=== PATIENT | female | born 1975 | race Caucasian/White ===

== ENCOUNTER 2016-11-08 17:08 | Emergency (ER) | payer OTHER ==
[2016-11-08 17:13] VITALS: BP 103/68; BMI 15.3
--- NOTE | 2016-11-08 17:41 | DR.GENAD ---
HPI - PCP Primary Care Physician: clyde - Complaint/Symptoms Chief Complaint Doctors Comments: Agree with statement. She denies fever, vomiting or diarrhea. Admits to flank pain Chief Complaint:: patient stated her right lower abd has been hurting since yesterday. she stated she thinks it may be a cyst or kidney stone - Source History Provided: Patient - Mode of Arrival Mode of Arrival: Ambulatory - Timing Onset of Chief Complaint: 11/07/16 PMH - PMH Past Medical History: No Past Surgical History: Yes Surgical History: , Cholecystectomy, Tonsillectomy - Family History History of Family Medical Conditions: No - Social History Does patient currently use any type of tobacco product: Yes Have you used tobacco products in the last 12 months: Yes Type of Tobacco Use: Cigarettes How many years tobacco product used: 15 Does any household member use tobacco: No Alcohol Use: None Do you use any recreational Drugs:: No Lives With: Family Lives Where: Home - infectious screening In the last 2 months have you had wt loss of >10#?: NO Have you had fever, night sweats or hemotysis?: No Have you traveled outside the country in the last 6 months?: No Isolation: Standard ROS - Review of Systems Eyes: No Symptoms Reported ENTM: No Symptoms Reported Respiratoy: No Symptoms Reported Cardiovascular: No Symptoms Reported Gastrointestinal/Abdominal: Abdominal Pain Genitourinary: No Symptoms Reported Neurological: No Symptoms Reported Musculoskeletal: No Symptoms Reported Integumentary: No Symptoms Reported Hematologic/Lymphatic: No Symptoms Reported Endocrine: No Symptoms Reported Psychiatric: No Symptoms Reported All Other Systems: Reviewed and Negative PE - Vital Signs Vitals: Temperature 98.7 F Pulse Rate 98 Respiratory Rate 16 Blood Pressure 103/68 O2 Sat by Pulse Oximetry 100 - General Limitations: No Limitations General Appearance: Alert, In No Apparent Distress - Head Head Exam: Normal Inspection, Atraumatic - Eyes Eye exam: Normal Appearance, PERRL, EOMI - ENT ENT Exam: Normal Exam External Ear Exam: Normal External Inspection TM/Canal Exam: Bilateral Normal Nose Exam: Normal Nose Exam Mouth Exam: Normal Inspection - Neck Neck Exam: Normal Inspection, Full ROM - Chest Chest Inspection: Normal Inspection - Respiratory Respiratory Exam: Normal Lung Sounds Bilat Respiratory Exam: Bilateral Clear to Auscultation - Cardiovascular Cardiovascular Exam: Regular Rate - Abdominal Exam Abdominal Exam: Normal Inspection, Soft, Tenderness (suprapubic, negative Rodriguez 's sign) Abdominal Tenderness: Suprapubic - Extremities Extremities Exam: Normal Inspection, Full ROM - Back Back Exam: Normal Inspection, Full ROM - Neurologic Neurological Exam: Alert, Oriented X3, CN II-XII Intact - Psychiatric Psychiatric Exam: Normal Affect - Skin Skin Exam: Warm, Dry, Intact ROR - Labs Reviewed Laboratory Results Reviewed?: Yes (Urine: Leukocytes +, 3+bld) Result Diagrams: 11/08/16 17:45 11/08/16 17:45 Laboratory: WBC 7.7 X10^3/uL (3.6-10.0) 11/08/16 17:45 RBC 4.25 X10^6/uL (3.5-5.4) 11/08/16 17:45 Hgb 12.7 g/dL (12.0-16.0) 11/08/16 17:45 Hct 37.9 % (36.0-47.0) 11/08/16 17:45 MCV 89.1 fL (80.0-100.0) 11/08/16 17:45 MCH 29.8 pg (27.0-34.0) 11/08/16 17:45 MCHC 33.5 g/dL (33.0-35.0) 11/08/16 17:45 RDW 14.0 % (11.6-16.5) 11/08/16 17:45 Plt Count 163 X10^3/uL (150.0-450.0) 11/08/16 17:45 MPV 11.1 fL (7.4-11.0) H 11/08/16 17:45 Neut % 64.6 % (42.0-75.0) 11/08/16 17:45 Lymph % 26.2 % (21.0-51.0) 11/08/16 17:45 Titus % 6.6 % (0.0-13.0) 11/08/16 17:45 Eos % 1.7 % (0.9-2.9) 11/08/16 17:45 Baso % 0.9 % (0.2-1.0) 11/08/16 17:45 Neut # 5.0 x10^3/uL (2.2-4.8) H 11/08/16 17:45 Lymph # 2.0 X10^3/uL (1.3-2.9) 11/08/16 17:45 Titus # 0.5 x10^3/uL (0.3-0.8) 11/08/16 17:45 Eos # 0.1 x10^3/uL (0.0-0.2) 11/08/16 17:45 Baso # 0.1 X10^3/uL (0.0-0.1) 11/08/16 17:45 Absolute Nucleated RBC 0.0 /100WBC 11/08/16 17:45 Sodium 142 mmol/L (136-145) 11/08/16 17:45 Corrected Sodium 143 mmol/L (136-145) 11/08/16 17:45 Potassium 4.3 mmol/L (3.5-5.1) 11/08/16 17:45 Chloride 105 mmol/L (98-107) 11/08/16 17:45 Carbon Dioxide 28.6 mmol/L (21-32) 11/08/16 17:45 BUN 14 mg/dL (7-18) 11/08/16 17:45 Creatinine 0.92 mg/dL (0.55-1.02) 11/08/16 17:45 Est GFR (MDRD) Af Amer > 60 (>60) 11/08/16 17:45 Est GFR (MDRD) Non-Af > 60 (>60) 11/08/16 17:45 Glucose 127 mg/dL (65-99) H 11/08/16 17:45 Calcium 8.7 mg/dL (8.5-10.1) 11/08/16 17:45 Corrected Calcium TNP 11/08/16 17:45 Total Bilirubin 0.30 mg/dL (0.2-1.0) 11/08/16 17:45 AST 11 Units/L (15-37) L 11/08/16 17:45 ALT 12 Units/L (12-78) 11/08/16 17:45 Alkaline Phosphatase 95 Units/L (46-116) 11/08/16 17:45 C-Reactive Protein 1.80 mg/L (0-3.0) 11/08/16 17:45 Total Protein 7.3 g/dL (6.4-8.2) 11/08/16 17:45 Albumin 4.1 g/dL (3.4-5.0) 11/08/16 17:45 Globulin 3.2 g/dL (2.5-4.5) 11/08/16 17:45 Albumin/Globulin Ratio 1.3 Ratio (1.1-2.1) 11/08/16 17:45 Specimen Type Clean catch urine 11/08/16 17:49 Urine Color Yellow (YELLOW) 11/08/16 17:49 Urine Appearance Hazy (CLEAR) 11/08/16 17:49 Urine pH 6.0 (5.0 - 8.0) 11/08/16 17:49 Ur Specific [place] 1.025 (1.000-1.030) 11/08/16 17:49 Urine Protein 1+ (NEGATIVE) 11/08/16 17:49 Urine Glucose (UA) Negative (NEGATIVE) 11/08/16 17:49 Urine Ketones 1+ (NEGATIVE) 11/08/16 17:49 Urine Occult Blood 3+ (NEGATIVE) 11/08/16 17:49 Urine Nitrite Negative (NEGATIVE) 11/08/16 17:49 Urine Bilirubin Negative (NEGATIVE) 11/08/16 17:49 Urine Urobilinogen 1+ (NORMAL) 11/08/16 17:49 Ur Leukocyte Esterase 1+ (NEGATIVE) 11/08/16 17:49 Urine RBC 0 - 4 /HPF (NEGATIVE) 11/08/16 17:49 Urine WBC 0 - 4 /HPF (NEGATIVE) 11/08/16 17:49 Ur Squamous Epith Cells Many /HPF (NEGATIVE) 11/08/16 17:49 Amorphous Sediment 1+ /HPF (NEGATIVE) 11/08/16 17:49 Urine Bacteria 1+ /HPF (NEGATIVE) 11/08/16 17:49 Hyaline Casts Rare /LPF (NEGATIVE) 11/08/16 17:49 Urine Mucus Moderate /HPF (NEGATIVE) 11/08/16 17:49 Ur Culture Indicated? No/not indicated 11/08/16 17:49 - XRAY XRAY Interpreted by: Radiologist (CT Abd/Pel:: No obstructing stone identified, Minimal fullness of the right ureter. Recently passed stone possible. Normal variant also possible. No other acute abnormality to explain the patients pain) - Diagnosis Discharge Problem: UTI (urinary tract infection) Qualifiers: Urinary tract infection type: acute cystitis Hematuria presence: with hematuria Qualified Code(s): N30.01 - Acute cystitis with hematuria - Discharge Plan Condition: Stable - Follow ups/Referrals Follow ups/Referrals: ZELALEM DIAZ [Primary Care Provider] - 3 days - Instructions
[2016-11-08 17:55] LABS: BILIRUBIN,URINE NEGATIVE (NEGATIVE); BLOOD/HEMOGLOBIN,URINE 3+ (NEGATIVE); GLUCOSE, URINE NEGATIVE (NEGATIVE); KETONES,URINE 1+ (NEGATIVE); LEUKOCYTE ESTERASE ,URINE 1+ (NEGATIVE); NITRITES,URINE NEGATIVE (NEGATIVE); PROTEIN,URINE 1+ (NEGATIVE); UROBILINOGEN,URINE 1+ (NORMAL)
[2016-11-08 18:06] LABS: BASOPHILS # (AUTO) 0.1 X10^3/uL (0.0-0.1); BASOPHILS % (AUTO) 0.9 % (0.2-1.0); EOSINOPHILS # (AUTO) 0.1 x10^3/uL (0.0-0.2); EOSINOPHILS % (AUTO) 1.7 % (0.9-2.9); HEMATOCRIT 37.9 % (36.0-47.0); HEMOGLOBIN 12.7 g/dL (12.0-16.0); LYMPHOCYTES % (AUTO) 26.2 % (21.0-51.0); MEAN CORPUSCULAR HEMOGLOBIN 29.8 pg (27.0-34.0); MEAN CORPUSCULAR HGB CONC 33.5 g/dL (33.0-35.0); MEAN CORPUSCULAR VOLUME 89.1 fL (80.0-100.0); MEAN PLATELET VOLUME 11.1 fL (7.4-11.0); MONOCYTES # (AUTO) 0.5 x10^3/uL (0.3-0.8); MONOCYTES % (AUTO) 6.6 % (0.0-13.0); NEUTROPHILS % (AUTO) 64.6 % (42.0-75.0); PLATELET COUNT 163 X10^3/uL (150.0-450.0); RED BLOOD COUNT 4.25 X10^6/uL (3.5-5.4); WHITE BLOOD COUNT 7.7 X10^3/uL (3.6-10.0)
[2016-11-08 18:07] LABS: ALANINE AMINOTRANSFERASE 12 Units/L (12-78); ALBUMIN 4.1 g/dL (3.4-5.0); ALKALINE PHOSPHATASE 95 Units/L (46-116); ASPARTATE AMINO TRANSFERASE 11 Units/L (15-37); BLOOD UREA NITROGEN 14 mg/dL (7-18); CALCIUM 8.7 mg/dL (8.5-10.1); CARBON DIOXIDE 28.6 mmol/L (21-32); CHLORIDE 105 mmol/L (98-107); COR NA(FOR HYPERGLY) 143 mmol/L (136-145); CREATININE 0.92 mg/dL (0.55-1.02); GLUCOSE 127 mg/dL (65-99); SODIUM 142 mmol/L (136-145); TOTAL PROTEIN 7.3 g/dL (6.4-8.2); eGFR BLACK RACES > 60 (>60); eGFR NON BLACK RACES > 60 (>60)
[2016-11-08 18:12] LABS: AMORPHOUS SEDIMENT,UR 1+ /HPF (NEGATIVE); APPEARANCE,URINE HAZY (CLEAR); BACTERIA,URINE 1+ /HPF (NEGATIVE); COLOR,URINE YELLOW (YELLOW); HYALINE CASTS, URINE RARE /LPF (NEGATIVE); MUCUS,URINE MODERATE /HPF (NEGATIVE); RBC,URINE 0 - 4 /HPF (NEGATIVE); SQUAMOUS EPITHELIAL CELL,UR MANY /HPF (NEGATIVE)
--- NOTE | 2016-11-08 19:19 | CT ---
CT abdomen and pelvis without contrast Indication: Pain. Possible renal stone. Technique: Helical images through the abdomen and pelvis without contrast. Coronal and sagittal refo rmats provided. Is Findings: Review of bone windows shows no destructive osseous lesion. Limited images through lower c hest shows no acute abnormality. Abdomen: Gallbladder is absent. The liver, spleen, pancreas, adrenal glands, stomach and small bowel appear normal. Appendix is normal. No acute colonic abnormality seen. Minimal vascular plaque noted . There is no hydronephrosis or renal/ureteral stone. The right ureter is slightly prominent. Recent ly passed stone not completely excluded. Pelvis: Urinary bladder and rectum are normal. Uterus and adnexa show no acute abnormality. Impression: 1. No obstructing stone identified. 2. Minimal fullness of the right ureter. Recently passed stone possible. Normal variant also possibl e. 3. No other acute abnormality to explain the patient's pain. Reported By:
== END 2016-11-08 19:40 | disposition home or self-care (01) ==
LOC: ER 17:17
DX: N30.01 Acute cystitis with hematuria (principal); R10.84 Generalized abdominal pain
CPT/HCPCS: 36415; 74176; 80053; 81001; 85025; 86140; 99283

== ENCOUNTER → 2017-06-16 | Outpatient (CLI) | payer OTHER ==
--- NOTE | 2017-06-16 14:39 | RAD ---
Examination: Lumbar spine, four views History, none Findings: There is no evidence for fracture, subluxation or disc narrowing. Alignment is anatomic. Pe dicles and sacroiliac joints intact. Impression: No significant abnormality demonstrated. Reported By:
--- NOTE | 2017-06-17 09:56 | MRI ---
MRI lumbar spine without contrast Indication: Degenerative disc disease Technique: Multisequence, multiplanar MR images of the lumbar spine were obtained without IV contrast . Comparison: Radiograph 09/19/2014 Findings: Vertebral body heights, alignment and marrow signal are normal. No acute fracture, subluxat ion or suspicious osseous lesion is identified. The conus terminates normally at T12-L1. The cauda eq uina is unremarkable. The visualized paraspinal soft tissues demonstrates no gross unexpected finding s. T12-L1, L1-L2, L2-L3, L3-L4: Unremarkable L4-L5: Mild broad-based disc bulge and ligamentum thickening results in mild lateral recess and neura l foraminal narrowing bilaterally. There is no significant canal stenosis. L5-S1: Mild broad-based disc bulge, lateralized towards the left results in moderate left lateral rec ess and moderate left and mild right neural foraminal narrowing. There is no significant canal stenos is. Impression: Degenerative changes of the lower lumbosacral spine, as detailed above. Reported By:
== END ==
LOC: RAD 13:33
PROVIDERS: ATTEND Nurse Practitioner Family
DX: M51.36 Other intervertebral disc degeneration, lumbar region (principal)
CPT/HCPCS: 72110; 72148